=== PATIENT | male | born 1950 | race Caucasian/White ===

== ENCOUNTER 2018-03-29 12:10 | Emergency (ER) | payer BC, MEDICARE, OTHER ==
[2018-03-29] MEDS ORDERED: NS 0.9% 1000 ML** 1,000 ML IV ONE (14:13)
[2018-03-29 14:41] LABS: ABS Basophils 0.1 10^3/ul (0-0.2); ABS Eosinophils 0 10^3/ul (0-0.6); ABS Lymphocytes 1.4 10^3/ul (1.0-4.8); ABS Monocytes 0.7 10^3/ul (0-0.8); ABS Neutrophils 10.8 10^3/ul (1.5-7.7); ABS Nucleated RBC 0 10^3/ul; Eosinophil % 0.1 %; Hematocrit 43 % (42-52); Hemoglobin 14.4 g/dl (14.0-18.0); Lymphocyte % 10.7 %; Mean Corpuscular HGB Conc 33 g/dl (31-36); Mean Corpuscular Hemoglobin 33 pg (27-31); Mean Corpuscular Volume 97 fL (80-94); Mean Platelet Volume 8.3 fL (7.4-10.4); Nucleated Red Blood Cells % 0; Platelet Count 212 10^3/ul (150-450); Red Blood Count 4.44 10^6/ul (4.00-5.40); Red Cell Distribution Width 14 % (10.5-15)
[2018-03-29 14:52] LABS: Activated Partial Thrombo Time 29.6 seconds (26.0-36.3); INR 1.05 (0.77-1.02)
[2018-03-29 15:00] LABS: Albumin 4.9 g/dL (3.2-5.2); Albumin/Globulin Ratio 1.8 (1-3); BUN/Creatinine Ratio 20.8 (8-20); C Reactive Protein 8.61 mg/L (<8.01); EGFR African American 89.4 (>60); EGFR Non-African American 73.9 (>60); Globulin 2.8 g/dL (2-4); Potassium 4.1 mmol/L (3.5-5.0); Total Bilirubin 1.3 mg/dL (0.2-1.0); Total Protein 7.7 g/dL (6.4-8.9)
[2018-03-29 15:04] LABS: CKMB ng/mL 1.6 ng/mL (0.6-6.3)
--- NOTE | 2018-03-29 16:18 | ED ---
Adult Trauma - HPI Summary HPI Summary: A 67 y/o M presents to ED s/p mechanical fall onset last night with c/o R rib pain and mid-back pain onset yesterday. He slipped on ice last night when leaving work. Pt went to [facility] today who took a CXR and saw 4 broken ribs, and sent him to ED for further evaluation. Denies head injury, LOC, neck pain, upper back and lower back pain. Medications include folic acid, Lisinopril, Remicade, Tizanidine, and occasional Tylenol. He takes the Remicade for RA. PCP is Dr. Harris. Vital at bedside: HR: 73 bpm, BP: 147/79. Home Medications Medication Instructions Recorded Confirmed Type Folic Acid 1 mg PO DAILY 03/29/18 03/29/18 History Lisinopril/HCTZ 20/12.5(NF) 1 tab PO DAILY 03/29/18 03/29/18 History [Zestoretic 20/12.5(NF)] Methotrexate TAB* 20 mg PO WEEKLY 03/29/18 03/29/18 History Tizanidine HCl 8 mg PO BEDTIME 03/29/18 03/29/18 History - History of Current Complaint Chief Complaint: EDChestWallPain Stated Complaint: FALL/RIGHT RIB INJURY Hx Obtained From: Patient, Family/Land Degradation Analyst - grandsonAndrea present Mechanism of Injury: Fall Ambulatory at the Scene: Yes Loss of Consciousness: no loss of consciousness Onset/Duration: Started Hours Ago - last night, Traumatic - fell on ice, Still Present Onset of Pain: Prior to Arrival Onset Severity: Severe Current Severity: Severe Pain Intensity: 10 Pain Scale Used: 0-10 Numeric Location: Chest, Back Character: Sharp Aggravating Factor(s): Movement, Deep Breaths Alleviating Factor(s): Shallowing Breathing Associated Signs & Symptoms: Positive: Negative - Allergy/Home Medications Allergies/Adverse Reactions: Allergies Allergy/AdvReac Type Severity Reaction Status Date / Time No Known Allergies Allergy Verified 03/29/18 14:48 Home Medications: Home Medications Folic Acid 1 mg PO DAILY 03/29/18 [History Confirmed 03/29/18] Lisinopril/HCTZ 20/12.5(NF) [Zestoretic 20/12.5(NF)] 1 tab PO DAILY 03/29/18 [ History Confirmed 03/29/18] Tizanidine HCl 8 mg PO BEDTIME 03/29/18 [History Confirmed 03/29/18] PMH/Surg Hx/FS Hx/Imm Hx Previously Healthy: No Cardiovascular History: Reports: Hx Hypertension Musculoskeletal History: Reports: Hx Rheumatoid Arthritis Sensory History: Reports: Hx Contacts or Glasses Opthamlomology History: Reports: Hx Contacts or Glasses - Surgical History Surgery Procedure, Year, and Place: Bilat hernia Infectious Disease History: No Infectious Disease History: Denies: Traveled Outside the [place] in Last 30 Days - Family History Known Family History: Positive: Diabetes - father, Other - Brother - Alz, Dementia Family History: neg: [place] - Social History Occupation: Employed Full-time Lives: With Family Alcohol Use: None Hx Substance Use: No Substance Use Type: Reports: None Hx Tobacco Use: No Smoking Status (MU): Never Smoked Tobacco Review of Systems Negative: Fever ENT: Negative Cardiovascular: Negative Respiratory: Negative Gastrointestinal: Negative Positive: no symptoms reported Musculoskeletal: Other - pos: R rib pain; mid-back pain Positive: Other - neg: head injury, neck pain, low and upper back pain Skin: Negative Neurological: Negative Negative: Syncope - LOC Psychological: Normal All Other Systems Reviewed And Are Negative: Yes Physical Exam - Summary Physical Exam Summary: Appearance: Well-appearing, moderate pain distress, well-nourished Skin: Warm, color reflects adequate perfusion, dry. Scratch wong on L anterior tibia. Head: Normal Head/Face inspection, atraumatic Eyes: Conjunctiva clear ENT: Normal inspection Neck: Supple, no nodes, no JVD Respiratory: Lungs clear, normal breath sounds and good breath sounds throughout , no respiratory distress. No crepitus, no bony tenderness, no ecchymosis, no flail chest Cardio: RRR, No murmur, pulses normal, brisk capillary refill Abdomen: Soft, nontender Bowel sounds: Present Musculoskeletal: Strength Intact/ROM intact, no calf tenderness, no edema. Psychological: Normal Neuro: Alert, muscle tone normal, no focal deficit Triage Information Reviewed: Yes Vital Signs On Initial Exam: Initial Vitals Temp Pulse Resp BP Pulse Ox 98.9 F 78 16 179/98 98 03/29/18 12:18 03/29/18 12:18 03/29/18 12:18 03/29/18 12:18 03/29/18 12:18 Vital Signs Reviewed: Yes Diagnostics - Vital Signs Vital Signs Temp Pulse Resp BP Pulse Ox 03/29/18 14:03 98 F 71 16 184/90 95 03/29/18 12:18 98.9 F 78 16 179/98 98 - Laboratory Lab Results: Lab Results 03/29/18 03/29/18 03/29/18 Range/Units 14:26 14:26 14:26 WBC 13.0 H (3.5-10.8) 10^3/ul RBC 4.44 (4.00-5.40) 10^6/ul Hgb 14.4 (14.0-18.0) g/dl Hct 43 (42-52) % MCV 97 H (80-94) fL MCH 33 H (27-31) pg MCHC 33 (31-36) g/dl RDW 14 (10.5-15) % Plt Count 212 (150-450) 10^3/ul MPV 8.3 (7.4-10.4) fL Neut % (Auto) 83.0 % Lymph % (Auto) 10.7 % Casey % (Auto) 5.2 % Eos % (Auto) 0.1 % Baso % (Auto) 1.0 % Absolute Neuts (auto) 10.8 H (1.5-7.7) 10^3/ul Absolute Lymphs (auto) 1.4 (1.0-4.8) 10^3/ul Absolute Monos (auto) 0.7 (0-0.8) 10^3/ul Absolute Eos (auto) 0 (0-0.6) 10^3/ul Absolute Basos (auto) 0.1 (0-0.2) 10^3/ul Absolute Nucleated RBC 0 10^3/ul Nucleated RBC % 0 INR (Anticoag Therapy) 1.05 H (0.77-1.02) APTT 29.6 (26.0-36.3) seconds Sodium 140 (135-145) mmol/L Potassium 4.1 (3.5-5.0) mmol/L Chloride 105 (101-111) mmol/L Carbon Dioxide 28 (22-32) mmol/L Anion Gap 7 (2-11) mmol/L BUN 21 (6-24) mg/dL Creatinine 1.01 (0.67-1.17) mg/dL Est GFR ( Amer) 89.4 (>60) Est GFR (Non-Af Amer) 73.9 (>60) BUN/Creatinine Ratio 20.8 H (8-20) Glucose 113 H (70-100) mg/dL Lactic Acid (0.5-2.0) mmol/L Calcium 10.0 (8.6-10.3) mg/dL Total Bilirubin 1.30 H (0.2-1.0) mg/dL AST 14 (13-39) U/L ALT 14 (7-52) U/L Alkaline Phosphatase 64 (34-104) U/L Total Creatine Kinase 88 (10-223) U/L CK-MB (CK-2) 1.6 (0.6-6.3) ng/mL Troponin I 0.00 (<0.04) ng/mL C-Reactive Protein 8.61 H (<8.01) mg/L Total Protein 7.7 (6.4-8.9) g/dL Albumin 4.9 (3.2-5.2) g/dL Globulin 2.8 (2-4) g/dL Albumin/Globulin Ratio 1.8 (1-3) 03/29/18 Range/Units 14:26 WBC (3.5-10.8) 10^3/ul RBC (4.00-5.40) 10^6/ul Hgb (14.0-18.0) g/dl Hct (42-52) % MCV (80-94) fL MCH (27-31) pg MCHC (31-36) g/dl RDW (10.5-15) % Plt Count (150-450) 10^3/ul MPV (7.4-10.4) fL Neut % (Auto) % Lymph % (Auto) % Casey % (Auto) % Eos % (Auto) % Baso % (Auto) % Absolute Neuts (auto) (1.5-7.7) 10^3/ul Absolute Lymphs (auto) (1.0-4.8) 10^3/ul Absolute Monos (auto) (0-0.8) 10^3/ul Absolute Eos (auto) (0-0.6) 10^3/ul Absolute Basos (auto) (0-0.2) 10^3/ul Absolute Nucleated RBC 10^3/ul Nucleated RBC % INR (Anticoag Therapy) (0.77-1.02) APTT (26.0-36.3) seconds Sodium (135-145) mmol/L Potassium (3.5-5.0) mmol/L Chloride (101-111) mmol/L Carbon Dioxide (22-32) mmol/L Anion Gap (2-11) mmol/L BUN (6-24) mg/dL Creatinine (0.67-1.17) mg/dL Est GFR ( Amer) (>60) Est GFR (Non-Af Amer) (>60) BUN/Creatinine Ratio (8-20) Glucose (70-100) mg/dL Lactic Acid 0.8 (0.5-2.0) mmol/L Calcium (8.6-10.3) mg/dL Total Bilirubin (0.2-1.0) mg/dL AST (13-39) U/L ALT (7-52) U/L Alkaline Phosphatase (34-104) U/L Total Creatine Kinase (10-223) U/L CK-MB (CK-2) (0.6-6.3) ng/mL Troponin I (<0.04) ng/mL C-Reactive Protein (<8.01) mg/L Total Protein (6.4-8.9) g/dL Albumin (3.2-5.2) g/dL Globulin (2-4) g/dL Albumin/Globulin Ratio (1-3) Result Diagrams: 03/29/18 14:26 03/29/18 14:26 Lab Statement: Any lab studies that have been ordered have been reviewed, and results considered in the medical decision making process. - Radiology CXR Radiology Interpretation Completed By: Radiologist Summary of Radiographic Findings: IMPRESSION: #. Subtle nondisplaced fractures of the RIGHT fifth, sixth, seventh ribs. No associated pneumothorax evident. ED provider has reviewed this report. - CT CHEST CT Interpretation Completed By: Radiologist - [address] Findings: IMPRESSION: 1. SMALL RIGHT LOWER LOBE INFILTRATE. 2. MILD EMPHYSEMATOUS CHANGE AND SMALL RIGHT UPPER LOBE PULMONARY NODULE. RECOMMEND A. FOLLOW-UP NONCONTRAST CT OF THE CHEST IN ONE YEARS TIME TO ASSESS STABILITY. 3. NONDISPLACED FRACTURES OF THE RIGHT POSTEROLATERAL 8TH THROUGH 10TH RIBS. 4. MODERATE SIZE HIATAL HERNIA. ED provider has reviewed this report. - EKG 1534 Cardiac Rate: NL - 67 bpm EKG Rhythm: Sinus Rhythm ST Segment: Non-Specific Ectopy: None Summary of EKG Findings: EKG at 1534 reveals NSR at 67 bpm, nml RICHIE CT, nml QTc , and nml axis. No acute changes. Re-Evaluation - Re-Evaluation 1 Re-Evaluation Time: 16:32 Change: Unchanged Comment: Discussing CT and CXR results with pt. Plans for discharge. Pt is agreeable to this. 2 Re-Evaluation Time: 17:04 Change: Unchanged Comment: Confirming with pt that it is ribs 5-9 that are fractured, by speaking with pt after speaking to radiologist who looked at both CT and CXR. Adult Trauma Course/Dx - Course Course Of Treatment: Pt is a 67 y/o M presenting s/p mechanical fall last night with c/o R-sided chest wall pain and mid-back pain onset yesterday. He slipped on ice last night when leaving work. Pt went to [facility] today who took CXR and saw 4 broken ribs, and sent him to ED for further evaluation. Denies head injury, LOC, neck pain, upper back and lower back pain. Medications include folic acid, Lisinopril, Remicade, Tizanidine, and occasional Tylenol. PCP is Dr. Harris. EKG at 1534 reveals NSR at 67 bpm, nml RICHIE CT, nml QTc, and nml axis. No acute changes. CXR shows "Subtle nondisplaced fractures of the RIGHT fifth, sixth, seventh ribs. No associated pneumothorax evident." Chest CT shows "IMPRESSION: 1. SMALL RIGHT LOWER LOBE INFILTRATE. 2. MILD EMPHYSEMATOUS CHANGE AND SMALL RIGHT UPPER LOBE PULMONARY NODULE. RECOMMEND A FOLLOW-UP NONCONTRAST CT OF THE CHEST IN ONE YEARS TIME TO ASSESS STABILITY. 3. NONDISPLACED FRACTURES OF THE RIGHT POSTEROLATERAL 8TH THROUGH 10TH RIBS. 4. MODERATE SIZE HIATAL HERNIA.". Consulted with Dr. Howe, radiology, who confirmed that R ribs 5-9 are definitely fractured. Pt does not have flail chest or PTX and he is not hypoxic. He is stable for discharge. Is given incentive spirometer and instructed in its use. Pt is given azithromycin to treat small RLL infiltrate, and hydrocodone for pain. Pt will f/u with Dr. Harris. Pt is advised of the pulmonary nodule and the follow up recommended for this. - Diagnoses Provider Diagnoses: Right lower lobe pulmonary infiltrate, Multiple fractures of ribs of right side , Pulmonary nodule, Hiatal hernia - Physician Notifications Discussed Care Of Patient With: Jarod Howe - radiologist Time Discussed With Above Provider: 16:45 Instructed by Provider To: Other - R ribs 5-9 are definitely fractured. Discharge - Sign-Out/Discharge Documenting (check all that apply): Patient Departure - D/C Patient Received Moderate/Deep Sedation with Procedure: No - Discharge Plan Condition: Stable Disposition: HOME Prescriptions: Azithromycin TAB* [Zithromax TAB (Z-JOSE ALFREDO) 250 mg #6 tabs] 2 tab PO .TODAY, THEN 1 DAILY #1 jose alfredo HYDROcodone/ACETAMIN 5-325 MG* [[place] 5-325 TAB*] 1 tab PO Q6H PRN #12 tab MDD 4 PRN Reason: Pain Patient Education Materials: Rib Fracture (ED), Pulmonary Nodules (ED), Pneumonia (ED) Forms: *Work Release Referrals: Oscar Harris MD [Primary Care Provider] - 3 Days Additional Instructions: We have given you copies of your CT chest and your xray. We spoke with Dr. Howe the radiologist and reading both the CT and the chest xray he states that you have ribs 5-9 fractured on the right. You do not have a pneumothorax or a flail chest. It does show an infiltrate on the right which could be a pneumonia that we are treating with azithromycin, especially since you are immunosuppressed. You need definite follow up with Dr. Harris in the next 2-3 days. You need to take deep breaths every hour while you are awake. You need to use the Inspirex to increase your lung capacity. Return to the ER if you have any new or worsening symptoms. - Billing Disposition and Condition Condition: STABLE Disposition: Home - Attestation Statements Document Initiated by Scribe: Yes Documenting Scribe: Ella Chowdary Provider For Whom Scribe is Documenting (Include Credential): Dr. Taylor Champagne MD Scribe Attestation: I, Ella Chowdary, scribed for Dr. Taylor Champagne MD on 04/02/18 at 2122. Scribe Documentation Reviewed: Yes Provider Attestation: The documentation as recorded by the scribe, Ella Chowdary accurately reflects the service I personally performed and the decisions made by me, Dr. Taylor Champagne MD Status of Scribe Document: Viewed
[2018-03-29 17:37] VITALS: BP 151/86
== END 2018-03-29 17:38 | disposition home or self-care (01) ==
LOC: ED 12:10
DX: R91.8 Other nonspecific abnormal finding of lung field (principal); S22.41XA Multiple fractures of ribs, right side, initial encounter for closed fracture; K44.9 Diaphragmatic hernia without obstruction or gangrene; R07.81 Pleurodynia; I10 Essential (primary) hypertension; W00.9XXA Unspecified fall due to ice and snow, initial encounter; Y92.9 Unspecified place or not applicable
CPT/HCPCS: 36415; 71046; 71250; 80053; 82550; 82553; 83605; 84484; 85025; 85610; 85730; 86140; 87040; 93005; 99283